=== PATIENT | female | born 1965 | race Caucasian/White ===

== ENCOUNTER 2018-08-31 13:20 | Day surgery (SDC) | payer OTHER ==
[~2018-08-31 13:20] MED LIST: Buffered Lidocaine 1% SYRIN* 1 ML/SYRINGE INTRADERM ONE; Dexamethasone IV* 4 MG/ML 1 ML (4 MG) IV SLOW PU ONE; Dexamethasone IV* 4 MG/ML 1 ML (4 MG) ONE; Famotidine IV* 10 MG/ML 2 ML (20 mg) IV ONE; Famotidine IV* 10 MG/ML 2 ML (20 mg) ONE; Lactated Ringers 1000 ML Bag* 1,000 ML IV SCH; Midazolam* 1 MG/ML 5 ML VIAL (5 MG) ONE; ceFAZolin 2 GM in NS PREMIX(*) 2 GM/100 ML BAG IVPB ONE; fentaNYL* 50 MCG/ML 2 ML VIAL (100 MCG VIAL) ONE
[2018-08-31] MEDS ORDERED: Bupivacaine 0.5% W/EPI SDV* 30 ML VIAL ONE (14:06)
[2018-08-31] MEDS ORDERED: EPINEPHRINE 1 MG/ML 1 ML VIAL ONE (14:06)
[2018-08-31] MEDS ORDERED: Propofol* 10 MG/ML 20 ML BTL ONE (14:24)
[2018-08-31] MEDS ORDERED: Lidocaine 2% PF * 5 ML VIAL ONE (14:24)
[2018-08-31] MEDS ORDERED: oxyCODONE/Acetamin 5/325 MG* TAB PO PRN (14:34)
[2018-08-31] MEDS ORDERED: DiMENhydriNATE IV* 50 MG/ML VIAL IV PUSH PRN (14:34)
[2018-08-31] MEDS ORDERED: Ketorolac INJ* 30 MG/ML 1 ML VIAL IV PRN (14:34)
[2018-08-31] MEDS ORDERED: fentaNYL* 50 MCG/ML 2 ML VIAL (100 MCG VIAL) IV PRN (14:34)
[2018-08-31] MEDS ORDERED: Naloxone* 0.4 MG/ML 1 ML VIAL IV PRN (14:34)
[2018-08-31] MEDS ORDERED: HYDROcodone/ACETAMIN 5-325 MG* 1 TAB PO PRN (14:34)
[2018-08-31] MEDS ORDERED: Ketorolac INJ* 30 MG/ML 1 ML VIAL ONE (14:46)
[2018-08-31] MEDS ORDERED: EPHEDrine (Pressors)* 50 MG/ML VIAL ONE (14:48)
[2018-08-31] MEDS ORDERED: methylPREDNISolone ACETATE 40* 40 MG/ML 1 ML VIAL ONE (15:19)
[2018-08-31] MEDS ORDERED: fentaNYL* 50 MCG/ML 2 ML VIAL (100 MCG VIAL) ONE (15:23)
[2018-08-31] MEDS ORDERED: HYDROcodone/ACETAMIN 5-325 MG* 1 TAB ONE (16:08)
[2018-08-31 16:34] VITALS: BP 120/74
--- NOTE | 2018-09-02 11:08 | OP ---
OPERATIVE REPORT: DATE OF OPERATION: 08/31/18 DATE OF : 63 SURGEON: Dr. Reno Peres. SLIP BRIDGE OPERATOR: RASHEED Graham A physician floral assistant was required for the length of procedure for assistance with positioning, knee manipulation, and closure. ANESTHESIOLOGIST: Dr. Nelda Dailey. ANESTHESIA: General anesthesia, local anesthesia with Marcaine 0.5% with epinephrine, approximately 30 cc placed subcutaneous. PRE-OP DIAGNOSIS: Right knee medial meniscus tear. POST-OP DIAGNOSIS: Right knee medial meniscus tear. OPERATIVE PROCEDURE: Right knee arthroscopic partial medial meniscectomy. ANTIBIOTICS: Ancef 2 g IV. IV FLUIDS: See Anesthesia note. TOURNIQUET TIME: 27 minutes at 300 mmHg at the level of the thigh. [id number] TIME: 26 minutes. ARTHROSCOPIC FLUIDS UTILIZED: Unknown to me. SPECIMEN: None. IMPLANTS: None. ESTIMATED BLOOD LOSS: Minimal. INDICATIONS FOR PROCEDURE: The patient is a 53-year-old woman, professor at [employer], who had a sudden injury in May 2018 with sudden pain about the posteromedial right knee with extension. Since then, the patient has had locking of the knee, pain with stairs and a limp. The patient is sc heduled to go to [facility] in November. The patient had an exam consistent with a medial meniscus tear. MRI demonstrated a likely fragment i nferior to the posterior horn of the medial meniscus. This was not competently done by Radiology but was noted by me. The patient did also have some abnormal signal about the posterior root of the med ial meniscus. I should mention that I spoke to the musculoskeletal fellowship trained radiologist lynette du was not the original reader of this MRI and he agreed with my assessment of a likely fragment, tear on the inferior aspect of the posterior horn of the medial meniscus. I spoke to the patient about the implications of each type of meniscus injury, a displaced fragment a bout the posterior horn versus a posterior root tear. The implications and prognosis being much bett er for the shaving up of a displaced fragment versus a root tear, that in this age and with some susy cular cartilage degenerative change would be repaired also with a partial meniscectomy, but would hav e a worse outcome. Discussed risks and potential complications of surgery. DESCRIPTION OF PROCEDURE: In preoperative holding, the patient signed a written consent. Operative extremity was marked in the preoperative holding. The patient was taken back to the operating room a nd placed supine on the operating room table. The patient was sedated and intubated. The right proximal thigh was placed in a tourniquet and right distal thigh was placed in a circumfere ntial thigh fernandez. Right lower extremity was prepped and draped. OR table was elevated and foot of the table was dropped. Surgical time-out was performed. Esmarch was applied and tourniquet was elevated to 300 mmHg. I made an anterolateral knee arthroscopy portal using standard technique. There was some synovitis i n the patellofemoral compartment, but I did not yet appreciate any patellofemoral compartment wear. I dropped down to the medial compartment. I noted a significant amount of grade 1 to 2 wear in the m edial compartment of the femur and tibia. I established an anteromedial knee arthroscopy portal unde r direct visualization to best instrument medially. Upon establishing that portal, I next went about debriding anterior synovitis and the ligamentum muco sum. The patient was noted to have ACL and PCL intact. I moved to the medial meniscus posteriorly. There was certainly some abnormality about the posterior root of the medial meniscus. I probed it aggressively. There was no clear full-thickness avulsion, however. I pulled it with some force and it appeared clearly firmly attached to bone. However, sim ilar to in the MRI view, the attachment seemed firmest in the anterior aspect of the posterior root w here it was less clear how robust it was just posterior to that, possibly representing a partial tear . However, with the inner surface intact, it was not appropriate to bite away to the front of this. It was not unstable. I just smoothed out some inflamed tissue overlying to improve my visualization . I probed inferior aspect of the posterior horn. There was no clear fragment present there or elsewhe re. There was some tearing about the posterior horn and so I debrided the posterior horn back to a s table rim of tissue with meniscal biter and arthroscopic shaver. Anticipating that the patient might need a procedure in the future for arthritis, I took multiple ailyn ges of the medial compartment. The patient had grade 1 wear of the tibia and grade 1 to 2 of the med ial femoral condyle rather diffusely. At this point, I was also able to view better the articular ca rtilage in the patellofemoral compartment. No clear patellar articular cartilage wear; however, ther e was a groove in the central part of the trochlear groove with grade 1 to 2 wear. This was rather t hin in diameter but without any stable tissue. The patient's lateral compartment showed no articular cartilage or meniscus injury. I removed instruments and all fluids from the knee. Skin incisions were closed with [id number] a nd eight stitches using nylon 3.0 suture. I next injected cortisone 120 mg, 3 cc with a concentratio n of 40 mg/mL, into the knee joint from an anterolateral approach. The patient and I discussed this preoperatively. I next placed the local anesthesia into the subcutaneous tissue surrounding the arth roscopy skin incision sites. We dressed the knee with Xeroform followed by 4x4s followed by ABD, fol lowed by sterile Webril, followed by Johnny bandage from foot to proximal thigh. Dropped the tourniquet . Placed cooling unit. The patient was awakened, extubated, and brought to the PACU. DISPOSITION: The patient was discharged home when medically stable. The patient is to start physica l therapy immediately. Wound care instructions provided. Percocet p.r.n. and aspirin x2 weeks. The patient will follow up in 10 to 14 days. The patient is to start physical therapy immediately. [id number]/[facility] #: [id number]
== END 2018-08-31 17:08 | disposition home or self-care (01) ==
LOC: OR 13:20
PROVIDERS: ATTEND Orthopaedic Surgery
DX: S83.241A Other tear of medial meniscus, current injury, right knee, initial encounter (principal); X50.0XXA Overexertion from strenuous movement or load, initial encounter; Y92.009 Unspecified place in unspecified non-institutional (private) residence as the place of occurrence of the external cause
CPT/HCPCS: J0690; J1030; J1100; J1885; J2250; J2704; J3010